=== PATIENT | male | born 1945 | race Caucasian/White ===

== ENCOUNTER 2020-06-12 07:59 | Outpatient (CLI) | payer MEDICARE, OTHER | END 2020-06-12 08:00 | disposition home or self-care (01) | LOC: CSHCT 07:59 | PROVIDERS: ATTEND Physician Assistant Medical | DX: K52.9 Noninfective gastroenteritis and colitis, unspecified (principal); K86.81 Exocrine pancreatic insufficiency; Z96.9 Presence of functional implant, unspecified | CPT/HCPCS: 74170; 82565 ==

== ENCOUNTER 2022-03-02 08:08 | Outpatient (CLI) | payer MEDICARE, OTHER | END 2022-03-02 08:09 | disposition home or self-care (01) | LOC: CSHWCC 08:08 | PROVIDERS: ATTEND Nurse Practitioner Family | DX: I87.312 Chronic venous hypertension (idiopathic) with ulcer of left lower extremity (principal); L97.822 Non-pressure chronic ulcer of other part of left lower leg with fat layer exposed | CPT/HCPCS: 97139; 97607; G0463; 99203 ==

== ENCOUNTER 2022-03-09 10:29 | Outpatient (CLI) | payer MEDICARE, OTHER | END 2022-03-09 10:30 | disposition home or self-care (01) | LOC: CSHWCC 10:29 | PROVIDERS: ATTEND Nurse Practitioner Family | DX: I87.312 Chronic venous hypertension (idiopathic) with ulcer of left lower extremity (principal); L97.822 Non-pressure chronic ulcer of other part of left lower leg with fat layer exposed; R60.0 Localized edema | CPT/HCPCS: 99213; G0463 ==

== ENCOUNTER 2022-03-16 10:04 | Outpatient (CLI) | payer MEDICARE, OTHER | END 2022-03-16 10:05 | disposition home or self-care (01) | LOC: CSHWCC 10:04 | PROVIDERS: ATTEND Nurse Practitioner Family | DX: M79.605 Pain in left leg (principal) ==

== ENCOUNTER 2022-03-23 11:15 | Outpatient (CLI) | payer MEDICARE, OTHER | END 2022-03-23 11:16 | disposition home or self-care (01) | LOC: CSHWCC 11:15 | PROVIDERS: ATTEND Nurse Practitioner Family | DX: I87.312 Chronic venous hypertension (idiopathic) with ulcer of left lower extremity (principal); L97.822 Non-pressure chronic ulcer of other part of left lower leg with fat layer exposed; R60.0 Localized edema | CPT/HCPCS: 99213; G0463 ==

== ENCOUNTER 2022-03-30 08:02 | Outpatient (CLI) | payer MEDICARE, OTHER | END 2022-03-30 08:03 | disposition home or self-care (01) | LOC: CSHWCC 08:02 | PROVIDERS: ATTEND Nurse Practitioner Family | DX: I87.312 Chronic venous hypertension (idiopathic) with ulcer of left lower extremity (principal); L97.822 Non-pressure chronic ulcer of other part of left lower leg with fat layer exposed; R60.0 Localized edema | CPT/HCPCS: 97139; G0463; 99212 ==

== ENCOUNTER 2022-04-13 10:03 | Outpatient (CLI) | payer MEDICARE, OTHER | END 2022-04-13 10:04 | disposition home or self-care (01) | LOC: CSHWCC 10:03 | PROVIDERS: ATTEND Nurse Practitioner Family | DX: I87.312 Chronic venous hypertension (idiopathic) with ulcer of left lower extremity (principal); L97.822 Non-pressure chronic ulcer of other part of left lower leg with fat layer exposed; R60.0 Localized edema | CPT/HCPCS: 97139; G0463; 99212 ==

== ENCOUNTER 2022-06-03 14:12 | Outpatient (CLI) | payer MEDICARE, BC | END 2022-06-03 14:13 | disposition home or self-care (01) | LOC: CSHWCC 14:12 | PROVIDERS: ATTEND Nurse Practitioner Family | DX: I87.312 Chronic venous hypertension (idiopathic) with ulcer of left lower extremity (principal); L97.822 Non-pressure chronic ulcer of other part of left lower leg with fat layer exposed | CPT/HCPCS: 87070; 87205; 97139; G0463; 99213 ==

== ENCOUNTER 2022-06-11 08:51 | Outpatient (CLI) | payer MEDICARE, BC | END 2022-06-11 08:52 | disposition home or self-care (01) | LOC: CSHWCC 08:51 | PROVIDERS: ATTEND Nurse Practitioner Family | DX: I87.312 Chronic venous hypertension (idiopathic) with ulcer of left lower extremity (principal); L97.822 Non-pressure chronic ulcer of other part of left lower leg with fat layer exposed ==